=== PATIENT | female | born 1975 | race Caucasian/White ===

== ENCOUNTER 2017-04-10 17:25 | Emergency (ER) | payer BC, MEDICAID ==
[2017-04-10 18:04] VITALS: BP 116/88
[2017-04-10] MEDS ORDERED: Acetaminophen 325 MG Tab PO ONE (18:05)
--- NOTE | 2017-04-10 18:09 | EDM.PDOC ---
ED HPI GENERAL MEDICAL PROBLEM - General Chief Complaint: Lower Extremity Injury/Pain Stated Complaint: L KNEE INJURY Time Seen by Provider: 04/10/17 17:51 Source of Information: Reports: Patient History Limitations: Reports: No Limitations - History of Present Illness INITIAL COMMENTS - FREE TEXT/NARRATIVE: Patient is a 42 female who presents to the ED complaining of left anterior knee discomfort. Patient states while walking down stairs she felt a pop below the knee with severe pain noted. She has increasing pain with weightbearing and also bending of the leg. She states the pain does cause a shooting sensation down her leg. States minimal swelling present. There is no bruising present. She denies any previous injury to the affected knee. States approx one month ago she had a ultrasound obtained to rule out DVT at [facility] with negative findings. Patient was concerned about having a blood clot since she had pain to the lateral aspect of her knee/lower leg. Patient sits a lot while at work. Pain today is described as a throbbing sharp sensation. Moderate intensity. Patient offers no additional complaints. Onset: Today, Sudden Duration: Constant, Waxing/Waning Location: Reports: Other (left knee) Quality: Reports: Ache, Sharp, Stabbing, Throbbing Severity: Moderate Improves with: Reports: Rest Worsens with: Reports: Other (palpation), Movement Context: Reports: Activity Treatments RECORDS ANALYST: Reports: Other (see below) (none stated) Left Knee Pain Score (Numeric/FACES): 9 - Related Data Allergies Allergy/AdvReac Type Severity Reaction Status Date / Time diphenhydramine Allergy Hives Verified 04/10/17 17:37 [From Benadryl] prednisone Allergy Joint Pain Verified 04/10/17 17:37 Home Meds: Home Meds Albuterol [Proventil Neb Soln] 1 inh INH ASDIRECTED PRN 04/10/17 [History] Mometasone/Formoterol [Dulera 100-5 MCG] 1 inh INH BID 04/10/17 [History] Montelukast [Singulair] 10 mg PO DAILY 04/10/17 [History] Past Medical History Respiratory History: Reports: Asthma - Past Surgical History Female Surgical History: Reports: Section Social & Family History - Tobacco Use Smoking Status *Q: Never Smoker - Caffeine Use Caffeine Use: Reports: Coffee, Soda - Recreational Drug Use Recreational Drug Use: No Review of Systems - Review of Systems Review Of Systems: See Below Musculoskeletal: Reports: Joint Pain (left knee pain) Skin: Reports: No Symptoms Neurological: Reports: Difficulty Walking (2nd to pain). Denies: Numbness, Tingling Trauma Exam - Physical Exam Exam: See Below Exam Limited By: No Limitations General Appearance: Reports: Alert, WD/WN, No Apparent Distress Ears: Reports: Hearing Grossly Normal Nose: Reports: Normal Inspection Throat/Mouth: Reports: Normal Voice, No Airway Compromise Neck: Reports: Normal Inspection Respiratory Exam: Reports: No Respiratory Distress, Lungs Clear, Normal Breath Sounds Cardiovascular: Reports: Normal Peripheral Pulses, Regular Rate, Rhythm, No Murmur Extremities: No Evidence of Injury, No Pedal Edema, Other (Pain noted to the inferior border of the knee where patellar tendon inserts. Pain with palpation to the lateral apsect of the knee along joint line. Pain shoots down the lateral calf. Unable to evaluate for ligamentious injury. Unable to flex/ext the knee 2nd to pain. Examination was limited due to pain with manipulation. Knee cap was in proper anatomical position, freely moveable, with no pain noted. ) Neurologic: Reports: No Motor/Sensory Deficits, Alert, Normal Mood/Affect, Oriented x 3 Skin: Reports: Normal Color, Warm/Dry Course - Vital Signs Last Recorded V/S: Last Vital Signs Temp 97.2 F 04/10/17 17:33 Pulse 92 04/10/17 17:33 Resp 18 04/10/17 17:33 BP 116/88 04/10/17 17:33 Pulse Ox 98 04/10/17 17:33 - Orders/Labs/Meds Orders: Active Orders 24 hr Category Date Time Status Knee 3V Lt [CR] Stat Exams 04/10/17 18:04 Taken DME for Discharge [COMM] Stat Oth 04/10/17 18:05 Ordered Meds: Medications Discontinued Medications Generic Name Dose Route Start Last Admin Trade Name Freq PRN Reason Stop Dose Admin Acetaminophen 975 mg 04/10/17 18:05 04/10/17 18:37 Tylenol PO 04/10/17 18:06 975 mg NOW ONE Administration - Re-Assessments/Exams Free Text/Narrative Re-Assessment/Exam: X-ray of the left knee was ordered with no acute findings. X-ray reviewed with Dr. Bishop. Crutches and knee immobilizer have been ordered along with tylenol 975mg PO. Discharging patient home with instructions as documented. Departure - Departure Time of Disposition: 19:06 Disposition: Home, Self-Care 01 Condition: good Clinical Impression: Knee pain, left Qualifiers: Chronicity: acute Qualified Code(s): M25.562 - Pain in left knee - Discharge Information Instructions: Crutch Use, [id number], Knee Sprain, [id number], Knee Immobilizer, [id number] Referrals: Hailey Pedraza SOFTWARE ENGINEER ADVISOR [Primary Care Provider] - Art Smith MD [Physician] - Forms: ED Department Discharge Additional Instructions: You are to be nonweightbearing until evaluated by . Elevate when able to reduce swelling and pain. Apply ice to the affected area 4 to 6 times daily, 20 minutes in duration, do not apply ice directly on the skin. Utilize tylenol and ibuprofen in alternating fashion for pain. Return to the E.D. for any new or worsening symptoms. - My Orders Last 24 Hours: My Active Orders 04/10/17 18:04 Knee 3V Lt [CR] Stat 04/10/17 18:05 DME for Discharge [COMM] Stat - Assessment/Plan Last 24 Hours: My Active Orders 04/10/17 18:04 Knee 3V Lt [CR] Stat 04/10/17 18:05 DME for Discharge [COMM] Stat
--- NOTE | 2017-04-11 06:27 | CR ---
Left knee: Three views of the left knee were obtained. Comparison: No previous study. Medial and lateral joint spaces are maintained in height. No joint effusion is seen. Patellofemoral joint appears within normal limits. No fracture or other abnormality is identified. Impression: 1. No abnormality is seen on three-view left knee study. Diagnostic code #1
== END 2017-04-10 19:30 | disposition home or self-care (01) ==
LOC: JD.ED 17:25
DX: M25.562 Pain in left knee (principal); J45.909 Unspecified asthma, uncomplicated; Z88.8 Allergy status to other drugs, medicaments and biological substances; Z98.890 Other specified postprocedural states; X58.XXXA Exposure to other specified factors, initial encounter
CPT/HCPCS: 73562; 99284; A9270; 99282